=== PATIENT | female | born 1965 | race Hispanic/Latino ===

== ENCOUNTER 2017-04-28 08:16 | Emergency (ER) | payer BC ==
[~2017-04-28] VITALS: Ht 144.8 cm; Wt 73.0 kg
[2017-04-28 09:06] LABS: HEMATOCRIT 42.9 % (36.0-46.0); HEMOGLOBIN 13.9 G/DL (11.9-15.5); MCH 24.7 PG (29.0-34.0); MCHC 32.4 G/DL (30.0-36.0); MCV 76.3 FL (83-99); PLATELET COUNT 338 K/uL (156-360); RBC DIS.WIDTH-CV 12.7 % (11.8-14.6); RBC DIS.WIDTH-SD 34.1 % (39-53); RED BLOOD COUNT 5.62 M/uL (3.80-5.20)
[2017-04-28 09:17] LABS: ALBUMIN 4.5 g/dL (3.2-4.8)
[2017-04-28 09:18] LABS: CHLORIDE 103 mEq/L (99-109); POTASSIUM 4.7 mEq/L (3.7-5.4); SODIUM 140 mEq/L (136-147)
[2017-04-28 09:20] LABS: GLUCOSE 146 mg/dL (70-99); TOTAL PROTEIN 7.7 g/dL (6.4-8.3)
[2017-04-28 09:22] LABS: TOTAL BILIRUBIN 0.3 mg/dL (0.0-1.0)
[2017-04-28 09:23] LABS: ALKALINE PHOSPHATASE 68 IU/L (3-129)
[2017-04-28 09:24] LABS: CREATININE 0.7 mg/dL (0.6-1.3)
[2017-04-28 09:25] LABS: AST (GOT) 15 IU/L (2-34); UREA NITROGEN (BUN) 24 mg/dL (9-23)
[2017-04-28 09:26] LABS: ALT (GPT) 14 IU/L (3-49)
[2017-04-28 09:31] LABS: GFR ESTIMATE (CALCULATED) > 59 mL/min/
[2017-04-28 12:30] VITALS: BP 123/70
[2017-04-28] MEDS ORDERED: ZOFRAN4 MG PO (13:15)
[2017-04-28] MEDS ORDERED: BENTYL10 MG PO (13:15)
[2017-04-28 13:34] LABS: APPEARANCE CLEAR ((CLEAR)); BILIRUBIN NEGATIVE; BLOOD SMALL; COLOR YELLOW ((YELLOW)); GLUCOSE (STRIP) NEGATIVE; KETONES 5; LEUKOCYTES NEGATIVE; NITRITE NEGATIVE; PROTEIN (STRIP) 30; SPECIFIC GRAVITY 1.055 (1.000-1.030); UROBILINOGEN 0.2 MG/DL (0.2-1.0)
[2017-04-28 13:38] LABS: BACTERIA RARE /HPF; EPITHELIAL CELLS 1+ /HPF; MUCUS TRACE /LPF; RED BLOOD CELLS 0-5 /HPF (0-5); UCUL ADDED? NO; WHITE BLOOD CELLS 0-5 /HPF (0-5)
== END 2017-04-28 14:56 | disposition home or self-care (01) ==
LOC: EME 08:16
DX: R10.84 Generalized abdominal pain (principal); D72.829 Elevated white blood cell count, unspecified; R19.00 Intra-abdominal and pelvic swelling, mass and lump, unspecified site
CPT/HCPCS: 74177; 80053; 81003; 84702; 85027; 99281; 99285; J2270; J2405; J7030; S0028